=== PATIENT | female | born 1980 | race Caucasian/White ===

== ENCOUNTER 2024-01-14 14:34 | Emergency (ER) | payer OTHER ==
[2024-01-14 15:05] VITALS: TEMP 97.9
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
[2024-01-14 17:03] VITALS: BP 139/90; PULSE 79; RESP 18
== END 2024-01-14 17:03 | disposition home or self-care (01) ==
LOC: EC 14:34
DX: S02.2XXA Fracture of nasal bones, initial encounter for closed fracture (principal); W22.8XXA Striking against or struck by other objects, initial encounter
CPT/HCPCS: 70450; 70486; 99284